=== PATIENT | male | born 1975 | race African-American/Black ===

== ENCOUNTER 2024-06-13 05:19 | Observation (INO) | payer OTHER ==
[2024-06-13 06:12] LABS: #Basophils 0.03 10x3/uL (0.0-0.2); %Basophils 0.5 % (0.0-1.0); %Eosinophils 1.4 % (0.0-10.0); %Monocytes 8.6 % (0.0-10.0); %Neutrophils 56.3 % (42.0-75.0); Hematocrit 40.2 % (42.0-52.0); Hemoglobin 13.8 g/dL (14.0-18.0); Mean Corpuscular HGB CONC 34.3 g/dL (32.0-36.0); Mean Corpuscular Hemoglobin 30.7 pg (27.0-31.0); Mean Corpuscular Volume 89.5 fL (78.0-98.0); Mean Platelet Volume 10.6 fL (7.4-10.4); Platelet Count 210 10x3/uL (130-400); RBC Distribution Width 11.7 % (11.5-14.5); Red Blood Cell (RBC) Count 4.49 mill/uL (4.70-6.10)
[2024-06-13] MEDS ORDERED: Acetaminophen 500 MG TAB ONE (06:16)
[2024-06-13 06:30] LABS: ALT (SGPT) 24 U/L (Less than 45); AST (SGOT) 26 U/L (11-34); Albumin 4.5 g/dL (3.1-4.5); Alkaline Phosphatase 63 U/L (40-110); Anion Gap 16 mmol/L (10-20); BUN (Urea Nitrogen) 11 mg/dL (8.9-20.6); Bilirubin, Total 1.7 mg/dL (0.3-1.2); Calc. Creatinine Clearance 0 mL/min (70-130); Calcium 9.8 mg/dL (7.8-10.44); Carbon Dioxide 26 mmol/L (22-29); Chloride 103 mmol/L (98-107); Estimated GFR 108; Globulin 3.9 g/dL (2.4-3.5); Glucose 109 mg/dL (70-105); Potassium 3.8 mmol/L (3.5-5.1); Protein, Total 8.4 g/dL (6.0-8.3); Sodium 141 mmol/L (136-145)
[2024-06-13 06:33] LABS: Troponin I Less than 0.010 ng/mL (< 0.028)
[2024-06-13] MEDS ORDERED: Acetaminophen 650 MG Suppository PR PRN (08:47)
[2024-06-13] MEDS ORDERED: Acetaminophen 325 MG TAB PO PRN (08:47)
[2024-06-13] MEDS ORDERED: Ondansetron ODT 4 MG TAB PO PRN (08:47)
[2024-06-13] MEDS ORDERED: hydrALAZINE 20 MG/ML VIAL SLOW IVP PRN (08:47)
[2024-06-13] MEDS ORDERED: Senokot S 8.6-50 MG TAB PO PRN (08:47)
[2024-06-13] MEDS ORDERED: Ondansetron PF 4 MG/2 ML Vial IVP PRN (08:47)
[2024-06-13] MEDS ORDERED: Calcium Carbonate 500 MG ChewTAB PO PRN (08:47)
[2024-06-13] MEDS ORDERED: Aspirin Chewable 81 MG TAB ONE (08:50)
[2024-06-13 10:19] VITALS: BMI 24.7
[2024-06-13] MEDS ORDERED: Aspirin 81 mg Enteric Coated Tablet ONE (10:56)
[2024-06-13] MEDS: Aspirin 81 mg Enteric Coated Tablet PO SCH (10:59)
[2024-06-13] MEDS ORDERED: Iopamidol-370 76% 500 ML MDV (1 ML CHARGE) ONE (14:37)
[2024-06-13] MEDS: Atorvastatin Calcium 40 MG TAB PO SCH (20:21)
[2024-06-14 04:15] LABS: #Basophils Less than 0.03 10x3/uL (0.0-0.2); %Basophils 0.2 % (0.0-1.0); %Eosinophils 1.6 % (0.0-10.0); %Lymphocytes 41.3 % (21.0-51.0); %Monocytes 9.1 % (0.0-10.0); %Neutrophils 47.5 % (42.0-75.0); Hematocrit 39.5 % (42.0-52.0); Hemoglobin 13.1 g/dL (14.0-18.0); Mean Corpuscular HGB CONC 33.2 g/dL (32.0-36.0); Mean Corpuscular Hemoglobin 30.6 pg (27.0-31.0); Mean Corpuscular Volume 92.3 fL (78.0-98.0); Mean Platelet Volume 10.9 fL (7.4-10.4); Platelet Count 203 10x3/uL (130-400); RBC Distribution Width 11.6 % (11.5-14.5); Red Blood Cell (RBC) Count 4.28 mill/uL (4.70-6.10)
[2024-06-14 04:46] LABS: Anion Gap 16 mmol/L (10-20); BUN (Urea Nitrogen) 12 mg/dL (8.9-20.6); Calc. Creatinine Clearance 93 mL/min (70-130); Calcium 9.4 mg/dL (7.8-10.44); Carbon Dioxide 26 mmol/L (22-29); Cardiac Risk 3.8 (Less than 4.5); Chloride 101 mmol/L (98-107); Cholesterol 271 mg/dl (< 200 Desired); Estimated GFR 89; Glucose 98 mg/dL (70-105); HDL Cholesterol 72 mg/dL (>60 Neg Risk); LDL Cholesterol, Calculated 171 mg/dL; Sodium 139 mmol/L (136-145); Triglycerides 142 mg/dL (Less than 150)
[2024-06-14 12:33] VITALS: BP 134/92; TEMP 98.2
== END 2024-06-14 17:20 | disposition home or self-care (01) ==
LOC: EEVIPCON 05:19 → ERS 05:19 → ERHOLD 08:25 → EEVIPCON 08:25 → 2SE 14:21
PROVIDERS: ADMIT Family Medicine; ATTEND Internal Medicine
DX: I16.1 Hypertensive emergency (principal); I10 Essential (primary) hypertension; Z79.82 Long term (current) use of aspirin; Z79.899 Other long term (current) drug therapy
CPT/HCPCS: 36415; 70450; 70496; 70498; 70551; 80048; 80053; 80061; 84443; 84484; 85025; 93005; G0378; Q9967